=== PATIENT | male | born 1960 | race Caucasian/White ===

== ENCOUNTER 2017-10-09 14:58 | Day surgery (SDC) | payer BC ==
[~2017-10-09] VITALS: Ht 188 cm; Wt 98.8 kg
[2017-10-09] VITALS (12 sets, daily range): BP systolic 131–194; BP diastolic 63–104
[2017-10-09 15:42] LABS: CLARITY,URINE CLEAR (Clear); COLOR,URINE YELLOW (Yellow); GLUCOSE, URINE NEGATIVE (Neg); KETONES,URINE 40 mg/dl (Neg); LEUKOCYTE ESTERASE ,URINE NEGATIVE (Neg); NITRITES, URINE NEGATIVE (Neg); OCCULT BLOOD,URINE LARGE (Neg); PH,URINE 5.5 (4.8-8.0); PROTEIN,URINE NEGATIVE (Neg); UROBILINOGEN,URINE 0.2 E.U/dL (0.2-1.0)
[2017-10-09 15:44] LABS: BASOPHILS # (AUTO) 0.2 X10'3 (0-0.2); BASOPHILS % (AUTO) 1.4 % (0-1); EOSINOPHILS % (AUTO) 0 % (0-6); HEMATOCRIT 43.8 % (42.0-52.0); LYMPHOCYTES # (AUTO) 1.1 X10'3 (1.1-4.8); LYMPHOCYTES % (AUTO) 6.1 % (21-51); MEAN CORPUSCULAR HEMOGLOBIN 29.5 PG (27.0-31.0); MEAN CORPUSCULAR HGB CONC 34.3 % (33.0-36.5); MEAN PLATELET VOLUME 8.8 FL (7.4-10.4); MONOCYTES # (AUTO) 0.8 X10'3 (0-0.9); MONOCYTES % (AUTO) 4.6 % (2-12); NEUTROPHILS # (AUTO) 15.4 X10'3 (1.8-7.7); NEUTROPHILS % (AUTO) 87.9 % (42-75); PLATELET COUNT 254 X10'3 (140-440); RED BLOOD COUNT 5.09 X10'6 (4.70-6.10); RED CELL DISTRIBUTION WIDTH 12.1 % (11.5-14.5); WHITE BLOOD COUNT 17.5 X10'3 (4.5-11.0)
[2017-10-09 15:48] LABS: UA COLLECTION TYPE VOIDED
[2017-10-09 15:51] LABS: WBC,URINE NONE SEEN /HPF (0-4)
[2017-10-09 15:52] LABS: BACTERIA,URINE NONE SEEN /HPF (Neg); MUCUS STRANDS NONE SEEN /LPF (Neg); SQUAMOUS EPITHELIAL CELL,UR NONE SEEN /LPF (FEW)
[2017-10-09 15:52] LABS: INR 0.9 INR; PROTHROMBIN TIME 9.8 SECONDS (9.0-12.0)
[2017-10-09] MEDS ORDERED: ondansetron/PF 4mg/2ml inj IV ONE ×2 (15:55→16:10)
[2017-10-09] MEDS ORDERED: diphenhydrAMINE 50 mg/ml inj IV ONE (15:55)
[2017-10-09 15:58] LABS: ALANINE AMINOTRANSFERASE 72 U/L (12-78); ALBUMIN 4.6 G/DL (3.4-5.0); ALBUMIN/GLOBULIN RATIO 1.3 (1.1-1.5); ALKALINE PHOSPHATASE 83 IU/L (46-116); ANION GAP 11 (8-16); ASPARTATE AMINO TRANSFERASE 32 U/L (10-37); BILIRUBIN,TOTAL 0.8 MG/DL (0.1-1.0); BLOOD UREA NITROGEN 18 MG/DL (7-18); BUN/CREATININE RATIO 15.8 (5.4-32.0); CHLORIDE 101 MMOL/L (99-107); CREATININE 1.14 MG/DL (0.60-1.10); GLUCOSE 113 MG/DL (70-104); LIPASE 163 U/L (73-393); POTASSIUM 3.8 MMOL/L (3.5-5.1); SODIUM 141 MMOL/L (135-145); TOTAL CARBON DIOXIDE 29.3 MMOL/L (24-32); TOTAL PROTEIN 8.2 G/DL (6.4-8.2); eGFR 66 ML/MIN
[2017-10-09] MEDS ORDERED: morphine sulfate 8 MG/ML SYRINGE IV ONE (16:10)
[2017-10-09] MEDS ORDERED: piperacillin/tazo 3.375gm/50ml 50 ML IV SCH (17:40)
[2017-10-09] MEDS ORDERED: piperacillin/tazo 3.375gm/50ml 50 ML IV ONE (17:55)
[2017-10-09] MEDS ORDERED: ringers solution, lacted 1,000 ML IV SCH (18:33)
[2017-10-09] MEDS ORDERED: ondansetron/PF 4mg/2ml inj IV PRN ×2 (18:35→20:20)
[2017-10-09] MEDS ORDERED: morphine sulfate 8 MG/ML SYRINGE IV PRN ×2 (18:35)
[2017-10-09] MEDS ORDERED: meperidine/PF 25mg/ml syringe IV PRN ×3 (18:35)
[2017-10-09] MEDS ORDERED: proCHLORperazine 10 MG/2 ml inj IV PRN (18:35)
[2017-10-09] MEDS ORDERED: BUPIVAcaine/PF 2.5 mg/ml (0.25%) 30ml vial ONE (19:08)
[2017-10-09] MEDS ORDERED: fentaNYL/PF 50MCG/1 ML 2ML syringe ONE (19:14)
[2017-10-09] MEDS ORDERED: midazolam 2 mg/2 ml injection ONE (19:14)
[2017-10-09] MEDS ORDERED: propofol inj 20 ML IV ONE (19:15)
[2017-10-09] MEDS ORDERED: LIDOcaine 2% (20mg/ml) 5ml vial ONE (19:15)
[2017-10-09] MEDS ORDERED: ketorolac trometh. 30mg/ml inj. ONE (19:34)
[2017-10-09] MEDS ORDERED: labetalol 5mg/ml 20ml inj. IV ONE (19:58)
[2017-10-09] MEDS ORDERED: meperidine/PF 50mg/ml syringe ONE (20:08)
[2017-10-09] MEDS ORDERED: HYDROcodone/acetaminophen 5mg/325mg tablet PO PRN (20:20)
[2017-10-09] MEDS ORDERED: CADD PCA waste documentation MC PRN (20:20)
[2017-10-09] MEDS ORDERED: naloxone 0.4 mg/ml inj IV PRN (20:20)
[2017-10-09] MEDS: HYDROmorphone/NS 1 mg/ml CADD 50 ML IV SCH ×2 (20:59→23:00)
[2017-10-10] MEDS ORDERED: piperacillin/tazo 3.375gm/50ml 50 ML IV SCH
[2017-10-10 00:20] VITALS: BP 124/71
[2017-10-10] MEDS: Potassium Cl inj 20 MEQ in ringers solution, lacted 1,000 ML IV SCH ×2 (00:49→04:24)
[2017-10-10] MEDS: ceFOXitin 1 GM ADDVANTAGE BAG 1,000 MG in normal saline 100ml IV soln 100 ML IV SCH ×2 (00:50→08:26)
[2017-10-10] MEDS: HYDROmorphone/NS 1 mg/ml CADD 50 ML IV SCH ×5 (01:00→09:00)
[2017-10-10 01:20] VITALS: BP 120/75
[2017-10-10 04:00] VITALS: BP 125/86
[2017-10-10 06:24] LABS: BASOPHILS # (AUTO) 0.1 X10'3 (0-0.2); BASOPHILS % (AUTO) 0.4 % (0-1); EOSINOPHILS # (AUTO) 0.2 X10'3 (0-0.9); EOSINOPHILS % (AUTO) 1.2 % (0-6); LYMPHOCYTES # (AUTO) 0.5 X10'3 (1.1-4.8); LYMPHOCYTES % (AUTO) 3.2 % (21-51); MEAN CORPUSCULAR HEMOGLOBIN 29.7 PG (27.0-31.0); MEAN CORPUSCULAR HGB CONC 33.4 % (33.0-36.5); MEAN CORPUSCULAR VOLUME 88.9 FL (78-98); MEAN PLATELET VOLUME 8.4 FL (7.4-10.4); MONOCYTES # (AUTO) 0.2 X10'3 (0-0.9); MONOCYTES % (AUTO) 1.6 % (2-12); NEUTROPHILS # (AUTO) 13.2 X10'3 (1.8-7.7); NEUTROPHILS % (AUTO) 93.6 % (42-75); PLATELET COUNT 243 X10'3 (140-440); RED BLOOD COUNT 4.72 X10'6 (4.70-6.10); RED CELL DISTRIBUTION WIDTH 13.3 % (11.5-14.5); WHITE BLOOD COUNT 14.1 X10'3 (4.5-11.0)
[2017-10-10 07:00] VITALS: BP 131/73
[2017-10-10 07:43] VITALS: BP 131/86
[2017-10-10] MEDS ORDERED: enoxaparin 40mg/0.4ml syringe SQ SCH (08:00)
[2017-10-10] MEDS ORDERED: docusate sod 100mg capsule PO SCH (08:00)
[2017-10-10] MEDS ORDERED: NO HOME MEDS (09:44)
== END 2017-10-10 10:23 | disposition home or self-care (01) ==
LOC: ER 14:58 → PACU OUT 20:23 → SUR 3N 21:00 → PACU OUT 10-10 10:23
PROVIDERS: ATTEND Internal Medicine
DX: K35.80 Unspecified acute appendicitis (principal); K38.8 Other specified diseases of appendix; I10 Essential (primary) hypertension; N20.0 Calculus of kidney; Z98.890 Other specified postprocedural states
CPT/HCPCS: 36415; 44950; 74176; 80053; 81001; 83605; 83690; 85025; 85610; 87040; 87070; J0694; J1170; J1885; J2001; J2175; J2250; J2270; J2405; J2543; J2704; J3010; J3480; J3490; J7030; J7120; A7000; J1650

== ENCOUNTER 2023-01-30 08:30 | Emergency (ER) | payer BC ==
[~2023-01-30] VITALS: Ht 188 cm; Wt 96.0 kg
[~2023-01-30 08:30] MED LIST: NO HOME MEDS
[2023-01-30 08:37] VITALS: BP 168/93
[2023-01-30 09:24] LABS: BASOPHILS # (AUTO) 0.1 X10'3 (0-0.2); BASOPHILS % (AUTO) 0.7 % (0-1); EOSINOPHILS # (AUTO) 0.1 X10'3 (0-0.9); EOSINOPHILS % (AUTO) 0.5 % (0-6); HEMATOCRIT 45.4 % (42.0-52.0); HEMOGLOBIN 15.1 g/dl (14.0-17.9); LYMPHOCYTES # (AUTO) 0.7 X10'3 (1.1-4.8); LYMPHOCYTES % (AUTO) 7.5 % (21-51); MEAN CORPUSCULAR HEMOGLOBIN 29.3 PG (27.0-31.0); MEAN CORPUSCULAR HGB CONC 33.4 g/dL (33.0-36.5); MEAN CORPUSCULAR VOLUME 87.9 FL (78-98); MEAN PLATELET VOLUME 7.5 FL (7.4-10.4); MONOCYTES # (AUTO) 0.4 X10'3 (0-0.9); MONOCYTES % (AUTO) 4.2 % (2-12); NEUTROPHILS # (AUTO) 8.6 X10'3 (1.8-7.7); NEUTROPHILS % (AUTO) 87.1 % (42-75); PLATELET COUNT 264 X10'3 (140-440); RED BLOOD COUNT 5.16 X10'6 (4.70-6.10); RED CELL DISTRIBUTION WIDTH 14.4 % (11.5-14.5); WHITE BLOOD COUNT 9.8 X10'3 (4.5-11.0)
[2023-01-30] MEDS ORDERED: IBUP-1985 PO (10:33)
[2023-01-30 11:12] LABS: ALANINE AMINOTRANSFERASE 40 U/L (12-78); ALBUMIN 4.4 G/DL (3.4-5.0); ALBUMIN/GLOBULIN RATIO 1.3 (1.1-1.5); ALKALINE PHOSPHATASE 80 IU/L (46-116); ANION GAP 10 (8-16); ASPARTATE AMINO TRANSFERASE 16 U/L (10-37); BILIRUBIN,TOTAL 0.5 MG/DL (0.1-1.0); BLOOD UREA NITROGEN 20 MG/DL (7-18); BUN/CREATININE RATIO 20.4 (10.0-20.0); CALCIUM 9.5 MG/DL (8.5-10.1); CHLORIDE 101 MMOL/L (99-107); CREATININE 0.98 MG/DL (0.60-1.10); GLUCOSE 123 MG/DL (70-104); POTASSIUM 3.8 MMOL/L (3.5-5.1); SODIUM 138 MMOL/L (135-145); TOTAL CARBON DIOXIDE 27.2 MMOL/L (24-32); TOTAL PROTEIN 7.9 G/DL (6.4-8.2); eGFR 78 ML/MIN
== END 2023-01-30 11:27 | disposition home or self-care (01) ==
LOC: ER 08:30
DX: S00.31XA Abrasion of nose, initial encounter (principal); M54.9 Dorsalgia, unspecified; I10 Essential (primary) hypertension; Z87.81 Personal history of (healed) traumatic fracture; Z88.6 Allergy status to analgesic agent; W18.39XA Other fall on same level, initial encounter; Y93.89 Activity, other specified; Y92.89 Other specified places as the place of occurrence of the external cause; Y99.8 Other external cause status
CPT/HCPCS: 36415; 71045; 80053; 85025; 93005; 99285